=== PATIENT | male | born 1970 | race Two or more races ===

== ENCOUNTER → 2020-03-23 | Emergency (ER) | payer SELFPAY ==
[~2020-03-23] VITALS: Ht 165.1 cm; Wt 68.0 kg
[2020-03-23 13:35] VITALS: BP 138/91
== END | disposition left against medical advice (07) ==
LOC: ER 13:22
DX: R53.1 Weakness (principal); R11.0 Nausea; E11.9 Type 2 diabetes mellitus without complications